=== PATIENT | male | born 1975 | race Caucasian/White ===

== ENCOUNTER 2019-11-02 15:00 | Outpatient (RCR) | payer OTHER, SELFPAY ==
--- NOTE | 2019-10-19 15:05 | PTOPEVAL ---
PHYSICAL THERAPY EVALUATION AND PLAN OF CARE 10-19-2019 The PT evaluation was completed for the diagnosis of R arm pain. He presents with weakness of scapula and poor posture in sitting and with the use of his tablet, which is causing him irritation of the ulnar nerve. Thank you for referring Fred to [facility].? He is scheduled to be seen for therapy? 2 x/week for 2 weeks. Please review, sign, date and return this plan of care ANAND. I agree with and certify that the following plan of care is medically necessary. Referring Physician Date Attending Provider: LELAND Jose *PT Outpatient Evaluation Start: 10/19/19 14:09 Document 10/19/19 14:05 RYDER (Rec: 10/19/19 14:57 RYDER [id number]) Outpatient Past Medical History Past Medical History Source of Past Medical History Patient Neurological History Hx Neurological Disorders No Significant History Cardiovascular History Hx Cardiac Disorders No Significant History Respiratory History Hx Respiratory Disorders No Significant History Gastrointestinal History Hx Gastrointestinal Disorders No Significant History Genitourinary History Hx Genitourinary Disorders No Significant History Musculoskeletal History Hx Other Musculoskeletal Disorders Yes: history of R shoulder pain Endocrine History Hx Endocrine Disorders No Significant History HEENT History Hx Other HEENT Disorders Yes: B ear tinnitis- intermittent Evaluation Information Problem Diagnosis R arm pain Onset Mar 2019 Subjective Information gradual increase in pain R arm Query Text:As Reported By Patient/ , after using computer tablet Family all day, next day pain would be worse; use for 1 &1/2 to 2 hours at a time; Diagnostic Tests MRI For This Problem Yes: sh in 2018:subacromial spur, bursitis,tendonitis Other Tests For This Problem Yes: nerve conduction R UE- negative in 2018 Previous Treatments Previous Treatments For This Problem PT for R shoulder in 2017/2018 - stretching helped Prior Level of Function Activity Level (Last 3 Months) Occupation not working outside of home; Hand Dominance Right Activity of Daily Living Ability Independent Indoor/Home Mobility Independent Community Mobility Independent Stairs Ability Independent Functional Cognition (Planning, Shopping Independent , Taking Medications) Cooking Yes Cleaning Yes Laundry Yes Shopping Yes Driving Yes Comments Additional Prior Level of Function i
--- NOTE | 2019-11-02 16:05 | PTOPEVAL ---
PHYSICAL THERAPY DISCHARGE 11-02-2019 Refer to the Clinical Summary section below. Fred continues to have pain over R scapular area and medial elbow, but pain rating at the worst has decreased. And he has times of no pain. He has been educated on correct posture and positioning of his shoulder/ UE with use of his tablet and a home exercise program. Thank you for referring Mr. Schofield to [facility].? Please review, sign, date and return this discharge ANAND. I agree with and certify that the following plan of care is medically necessary. Referring Physician Date Attending Provider: NICHOLE JoseBC *PT Outpatient Discharge Document 11/02/19 15:04 RYDER (Rec: 11/02/19 15:41 RYDER [id number]) Pain Assessment Timing of Pain Assessment Timing of Pain Assessment Assessment Pain Scale Pain Scale Used Numeric (1 - 10) Self Report Pain Assessment Right Shoulder(s) Reported Pain Level 2 Pain Description Aching Pain Frequency Acute Lowest Pain Intensity 0 Greatest Pain Intensity 3 Other Pain Aggravating Factors when wake up in morning-sleep on back or L side; Pain Relief Interventions Used By Inactivity/Rest,Medication, Patient Position Change Other Alleviating Interventions few stretches, wait few hours and it goes away; acetaminophen Additional Pain Comments elbow sensitive and sore, tender when touch or use it repeatedly,use tablet Pain Score Pain Score 2: Self Report Upper Extremity Range of Motion General Upper Extremity Range of Motion Gross Upper Extremity Range of Motion standing R and L shoulder and Comments elbow AROM- flex/ext and supination/pronation is WNL without any reports of pain; cervical ROM, active reports tight in L side neck with rotation to R; supine R and L shoulder ER stretch: R 55'/ L 65' with shoulder abduction 90'; without pain, reported tight on R shoulder Upper Extremity Muscle Strength Testing General Upper Extremity Strength Gross Upper Extremity Strength Comments standing arm bike x 4 minutes for warm up and posture stabilization standing B UE with green theraband resistance: B rows, shoulder ER x 10 reps; prone shoulder extension R and
== END 2019-11-06 10:13 | disposition home or self-care (01) ==
LOC: ANHPT 15:00
PROVIDERS: PCP Nurse Practitioner Family; Visit Provider Nurse Practitioner Family
DX: M79.601 Pain in right arm (principal)
CPT/HCPCS: 97110; 97140; 97161

== ENCOUNTER 2020-06-19 14:51 | Outpatient (CLI) | payer OTHER, SELFPAY ==
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
== END 2020-06-19 14:52 | disposition home or self-care (01) ==
LOC: ANHIMG 14:58
PROVIDERS: PCP Nurse Practitioner Family; Visit Provider Nurse Practitioner Family
DX: R07.81 Pleurodynia (principal)
CPT/HCPCS: 71100